=== PATIENT | male | born 1980 | race Caucasian/White ===

== ENCOUNTER 2017-05-14 21:08 | Emergency (ER) | payer OTHER ==
[~2017-05-14] VITALS: Ht 185.4 cm; Wt 81.6 kg
[2017-05-14] MEDS ORDERED: DEXA0.5E2 PO (21:27)
[2017-05-15] MEDS ORDERED: ONDANSETRON ODT 8 MG ONE (01:01)
[2017-05-15] MEDS ORDERED: ONDANSETRON ODT 8 MG PO ONE (01:30)
[2017-05-15 03:16] VITALS: BP 114/64
== END 2017-05-15 03:28 | disposition home or self-care (01) ==
LOC: ED 22:25
DX: T65.91XA Toxic effect of unspecified substance, accidental (unintentional), initial encounter (principal); S09.90XA Unspecified injury of head, initial encounter; F10.121 Alcohol abuse with intoxication delirium; X58.XXXA Exposure to other specified factors, initial encounter; Y93.89 Activity, other specified; Y92.89 Other specified places as the place of occurrence of the external cause; Y99.8 Other external cause status
CPT/HCPCS: 70450; 99284; Q0162